=== PATIENT | female | born 2000 | race Caucasian/White ===

== ENCOUNTER 2022-10-19 13:37 | Emergency (ER) | payer OTHER ==
[~2022-10-19] VITALS: Ht 160 cm; Wt 87.3 kg
[2022-10-19 14:22] LABS: COVID AG,FIA SOURCE NASAL SWAB
[2022-10-19 15:06] LABS: INFLUENZA TYPE A NEGATIVE FOR TYPE A (NEGATIVE); INFLUENZA TYPE B NEGATIVE FOR TYPE B (NEGATIVE)
[2022-10-19 16:50] VITALS: BP 126/75
[2022-10-19] MEDS ORDERED: BENZ-227 PO (17:02)
[2022-10-19] MEDS ORDERED: ALBU8HFA IH (17:02)
== END 2022-10-19 17:17 | disposition home or self-care (01) ==
LOC: EMS 13:47
DX: J40 Bronchitis, not specified as acute or chronic (principal); Z20.822 Contact with and (suspected) exposure to COVID-19
CPT/HCPCS: 71045; 87804; 99284